=== PATIENT | female | born 1975 | race Caucasian/White ===

== ENCOUNTER → 2017-03-15 | Outpatient (CLI) | payer BC ==
[~2017-03-15] MED LIST: CETI10CA PO; HYDR-3583 PO; HYOS0.1217 PO; MNTL10T; PRM25T PO; SLMFT1E; [UNRECOGNIZED DRUG - OTHER]
--- NOTE | 2017-03-15 14:28 | Diagnostic Imaging Report ---
EXAMINATION: Pelvic ultrasound. INDICATION: Dyspareunia. FINDINGS: The previous pelvic ultrasound exam performed on 01/27/2010 noted a small slightly complicated cyst associated with the left ovary measuring 1.2 x 1.2 x 1.3 cm. There was no other abnormality identified. On this study, the uterus is nongravid and not enlarged measuring 7.3 x 5.2 x 5.5 cm. The uterus does seem similar in size to the prior exam. The endometrial lining is thickened measuring 13 mm (normal 5 mm or less). This finding is nonspecific. Correlation with the patient's menstrual cycle will be recommended. Furthermore, adjacent to the posterior margin of the endometrium near the endometrial/myometrial interface, there is a poorly defined roughly 1.5 x 2 cm area of increased echogenicity. This finding is of uncertain etiology but could be secondary to hemorrhage. Whether this is within the endometrium or in the myometrium is not certain. I would recommend that a short-term (4-6 weeks) follow-up pelvic ultrasound exam be performed for further study. Both ovaries are identified. There is a 2.4 x 2.6 x 1.4 cm cyst associated with the left ovary. This cyst has a generally benign appearance. There is also a 1.4 x 0.8 x 1.1 cm area of mixed echogenicity adjacent to the right ovary. This may represent an ovarian cyst which has been complicated by infection and/or hemorrhage. It will be less likely that there is a solid mass associated with this cyst. Both of the ovarian abnormalities could be further evaluated on the follow-up pelvic ultrasound exam. There is no discrete solid mass identified and there is no sign of a free fluid collection. IMPRESSION: 1. The area of increased echogenicity near the posterior interface of the endometrium and myometrium is of uncertain etiology but could be related to hemorrhage. Recommendations as above. 2. There is a benign-appearing cyst associated with the left ovary and a complex lesion adjacent to the right ovary. These findings could also be further evaluated on the follow-up pelvic ultrasound exam. 3. There is no acute pelvic abnormality noted otherwise. Dictated by: Dictated on workstation # [id number]
== END ==
LOC: RAD 10:19
PROVIDERS: ATTEND Obstetrics & Gynecology
DX: Z12.31 Encounter for screening mammogram for malignant neoplasm of breast (principal); N83.202 Unspecified ovarian cyst, left side; R19.09 Other intra-abdominal and pelvic swelling, mass and lump; N94.12 Deep dyspareunia
CPT/HCPCS: 76830; 76856; 77067

== ENCOUNTER → 2020-07-21 | Outpatient (CLI) | payer BC ==
--- NOTE | 2020-07-21 13:49 | Diagnostic Imaging Report ---
INDICATION: Routine screening. COMPARISON: 03/15/2017 and 12/30/2014. TECHNIQUE: 2D and 3D bilateral screening mammography was performed with CAD. FINDINGS: Both breasts are heterogeneously dense, limiting the sensitivity of mammography. There are benign calcifications in both breasts. No masses or malignant appearing microcalcifications are seen. The axillae are unremarkable. IMPRESSION: No mammographic features suspicious for malignancy are identified. ACR BI-RADS Category 2: Benign findings. Result letter will be mailed to the patient. Note: At least 10% of breast cancer is not imaged by mammography. Dictated by: Dictated on workstation # [id number]
== END ==
LOC: RAD 11:00
PROVIDERS: ATTEND Obstetrics & Gynecology
DX: Z12.31 Encounter for screening mammogram for malignant neoplasm of breast (principal)
CPT/HCPCS: 77063; 77067

== ENCOUNTER → 2022-01-20 | Outpatient (CLI) | payer BC ==
--- NOTE | 2022-01-20 09:58 | Diagnostic Imaging Report ---
INDICATION: Routine screening. Comparison is made with prior mammogram from 07/21/2020 and 03/15/2017. 2-D and 3-D bilateral screening mammography was performed with CAD. Both breasts are heterogeneously dense, limiting the sensitivity of mammography. The parenchymal pattern is stable. No mass or malignant-appearing microcalcifications are seen. There are benign calcifications present. Axillae are unremarkable. IMPRESSION: No mammographic features suspicious for malignancy are identified. ACR BI-RADS Category 2: Benign findings. Result letter will be mailed to the patient. Note: At least 10% of breast cancer is not imaged by mammography. BI-RADS Category 2 Dictated by: Dictated on workstation # [id number]
== END ==
LOC: RAD 09:15
PROVIDERS: ATTEND Obstetrics & Gynecology
DX: Z12.31 Encounter for screening mammogram for malignant neoplasm of breast (principal)
CPT/HCPCS: 77063; 77067

== ENCOUNTER → 2023-02-12 | Outpatient (CLI) | payer BC ==
--- NOTE | 2023-02-12 13:13 | Diagnostic Imaging Report ---
PROCEDURE: Pelvic comp/transvaginal sonogram. TECHNIQUE: Complete transabdominal and transvaginal pelvic ultrasound was performed. In addition, limited pelvic Doppler was performed. INDICATION: Enlarged uterus. Uterus is anteverted measuring 8.2 x 4.3 x 5.7 cm. Endometrium is 8 mm in thickness. There are cervical nabothian cysts. There appears to be uterine fibroids present, largest approximately 2.4 x 3.1 x 2.0 cm. Right ovary measures 2.5 x 1.2 x 2.3 cm and the left ovary measures 3.8 x 3.4 x 3.2 cm. Left ovary does contain approximately 3.3 cm cyst. There is a right-sided paraovarian cyst approximately 1.1 cm size. Both ovaries show blood flow. Ovaries contain small follicles. There is no free fluid identified. IMPRESSION: 1. Fibroid uterus. 2. 3.3 cm left ovarian cyst and small right paraovarian cyst. Dictated by: Dictated on workstation # [id number]
== END ==
LOC: RAD 11:29
PROVIDERS: ATTEND Obstetrics & Gynecology
DX: N83.202 Unspecified ovarian cyst, left side (principal); N83.201 Unspecified ovarian cyst, right side; D25.9 Leiomyoma of uterus, unspecified; N85.2 Hypertrophy of uterus
CPT/HCPCS: 76830; 76856

== ENCOUNTER → 2023-02-12 | Outpatient (CLI) | payer BC ==
--- NOTE | 2023-02-12 13:19 | Diagnostic Imaging Report ---
Indication: Routine screening. Comparison is made with prior mammogram from 01/20/2022 and 07/21/2020. 2-D and 3-D bilateral screening mammography was performed with CAD. The current study was also evaluated with a Computer Aided Detection (CAD) system. Both breasts are heterogeneously dense, limiting the sensitivity of mammography. No mass or malignant-appearing microcalcifications are seen. There are scattered benign calcifications. Axillae are unremarkable. IMPRESSION: BI-RADS Category 2 No mammographic features suspicious for malignancy are identified. ACR BI-RADS Category 2: Benign findings. Result letter will be mailed to the patient. Note: At least 10% of breast cancer is not imaged by mammography. Dictated by: Dictated on workstation # [id number]
== END ==
LOC: RAD 08:51
PROVIDERS: ATTEND Obstetrics & Gynecology
DX: Z12.31 Encounter for screening mammogram for malignant neoplasm of breast (principal)
CPT/HCPCS: 77063; 77067